=== PATIENT | female | born 1985 | race Caucasian/White ===

== ENCOUNTER 2019-09-18 15:38 | Emergency (ER) | payer MEDICAID ==
--- NOTE | 2019-09-18 15:44 | EDM.PDOC ---
ED HPI GENERAL MEDICAL PROBLEM - General Chief Complaint: Back Pain or Injury Stated Complaint: BACK PAIN Time Seen by Provider: 09/18/19 15:44 Source of Information: Reports: Patient History Limitations: Reports: No Limitations - History of Present Illness INITIAL COMMENTS - FREE TEXT/NARRATIVE: 34-year-old female who is complaining of having bilateral leg numbness and weakness which was most notable earlier today. Symptoms have improved but she is still having some paresthesias of both legs. Patient did not fall and did ambulate in the emergency department. 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 Patient is followed by neurologist and scheduled for neurosurgery. Denies being incontinent of stool or urine. She has no saddle numbness. She denies ever having bilateral paresthesias to the lower extremities. Any fever chills denies any headache or chest pain patient has no abdominal pain or dysuria. Nothing for above symptoms. Onset: Today Duration: Improving Location: Reports: Lower Extremity, Left, Lower Extremity, Right Severity: Moderate Improves with: Reports: None Worsens with: Reports: None Associated Symptoms: Reports: No Other Symptoms back Pain Score (Numeric/FACES): 8 - Related Data Allergies Allergy/AdvReac Type Severity Reaction Status Date / Time tetanus toxoid, adsorbed Allergy Hives Verified 09/18/19 15:51 Home Meds: Home Meds Levothyroxine [Synthroid] 100 mcg PO ACBREAKFAST 09/18/19 [History] Omeprazole 20 mg PO ONETIME 09/18/19 [History] busPIRone [Buspar] 10 mg PO BID 09/18/19 [History] ED ROS GENERAL - Review of Systems Review Of Systems: See Below Constitutional: Reports: No Symptoms Respiratory: Reports: No Symptoms Cardiovascular: Reports: No Symptoms Endocrine: Reports: No Symptoms GI/Abdominal: Reports: No Symptoms : Reports: No Symptoms Musculoskeletal: Reports: No Symptoms Skin: Reports: No Symptoms Neurological: Reports: Paresthesia (Bilateral lower extremities.). Denies: Dizziness, Difficulty Walking, Change in Speech, Gait Disturbance Psychiatric: Reports: No Symptoms Hematologic/Lymphatic: Reports: No Symptoms ED EXAM,LOWER BACK PAIN/INJURY - Physical Exam Exam: See Below Exam Limited By: No Limitations General Appearance: Alert, No Apparent Distress Head: Atraumatic Neck: Normal Inspection Respiratory/Chest: No Respiratory Distress, Lungs Clear, Normal Breath Sounds Cardiovascular: No JVD GI/Abdominal: Normal Bowel Sounds, Soft, Non-Tender Back Exam: Paraspinal Tenderness. No: Vertebral Tenderness Extremities: Normal Inspection. No: Increased Warmth Neurological: Alert, Normal Mood/Affect. No: Normal Reflexes (Increased deep tendon reflexes bilaterally.) Psychiatric: Normal Affect Skin Exam: Warm, Dry Course - Vital Signs Last Recorded V/S: Last Vital Signs Temp 35.9 C 09/18/19 15:52 Pulse 71 09/18/19 15:52 Resp 16 09/18/19 15:52 BP 123/88 09/18/19 15:52 Pulse Ox 98 09/18/19 15:52 - Orders/Labs/Meds Orders: Active Orders 24 hr Category Date Time Status predniSONE Med 09/18/19 15:58 Once 60 mg PO ONETIME ONE Medication Orders Prednisone (Prednisone) 60 mg PO ONETIME ONE Stop: 09/18/19 15:59 Meds: Medications Generic Name Dose Route Start Last Admin Trade Name Tonio PRN Reason Stop Dose Admin Prednisone 60 mg 09/18/19 15:58 Prednisone PO 09/18/19 15:59 ONETIME ONE Departure - Departure Time of Disposition: 16:05 Disposition: Home, Self-Care 01 Condition: Good Clinical Impression: Sciatica - Discharge Information Instructions: Sciatica, Radicular Pain Referrals: Brooke Fuentes DAIRY TESTER [Primary Care Provider] - Forms: ED Department Discharge Additional Instructions: Prednisone as prescribed. Follow-up with neurologist and neurosurgeon soon as possible. Return to ER if worse or having any symptoms of urinary or stool incontinence. Care Plan Goals: The following information is given to patients seen in the emergency department who are being discharged to home. This information is to outline your options for follow-up care. We provide all patients seen in our emergency department with a follow-up referral. The need for follow-up, as well as the timing and circumstances, are variable depending upon the specifics of your emergency department visit. If you don't have a primary care physician on staff, we will provide you with a referral. We always advise you to contact your personal physician following an emergency department visit to inform them of the circumstance of the visit and for follow-up with them and/or the need for any referrals to a consulting specialist. The emergency department will also refer you to a specialist when appropriate. This referral assures that you have the opportunity for follow-up care with a specialist. All of these measure are taken in an effort to provide you with optimal care, which includes your follow-up. Under all circumstances we always encourage you to contact your private physician who remains a resource for coordinating your care. When calling for follow-up care, please make the office aware that this follow-up is from your recent emergency room visit. If for any reason you are refused follow-up, please contact the [facility] Emergency Department at and asked to speak to the emergency department charge nurse. Sepsis Event Note - Focused Exam Vital Signs: Vital Signs Temp Pulse Resp BP Pulse Ox 09/18/19 15:52 35.9 C 71 16 123/88 98 Date Exam was Performed: 09/18/19 Time Exam was Performed: 15:59 - My Orders Last 24 Hours: My Active Orders 09/18/19 15:58 predniSONE 60 mg PO ONETIME ONE - Assessment/Plan Last 24 Hours: My Active Orders 09/18/19 15:58 predniSONE 60 mg PO ONETIME ONE
[2019-09-18] MEDS ORDERED: predniSONE 20 MG Tab PO ONE (15:58)
== END 2019-09-18 17:31 | disposition home or self-care (01) ==
LOC: MW.ED 15:38
DX: M54.31 Sciatica, right side (principal); M54.32 Sciatica, left side
CPT/HCPCS: 99284; A9270; 99282